=== PATIENT | male | born 1970 | race Two or more races ===

== ENCOUNTER 2019-04-19 11:48 | Emergency (ER) | payer OTHER ==
[~2019-04-19] VITALS: Ht 177.8 cm; Wt 77.1 kg
[2019-04-19] MEDS ORDERED: NIFEDIPINE ER30 MG PO (12:16)
[2019-04-19] MEDS ORDERED: AVAPRO300 MG PO (12:16)
== END 2019-04-19 15:01 | disposition home or self-care (01) ==
LOC: ER 11:48
DX: M79.622 Pain in left upper arm (principal)

== ENCOUNTER 2022-06-13 10:16 | Emergency (ER) | payer OTHER ==
[~2022-06-13] VITALS: Ht 177.8 cm; Wt 78.9 kg
[~2022-06-13 10:16] MED LIST: AVAPRO300 MG PO; NIFEDIPINE ER30 MG PO
[2022-06-13] MEDS ORDERED: CANDESARTAN CIL32 MG PO (11:11)
== END 2022-06-13 16:22 | disposition home or self-care (01) ==
LOC: ER 10:16
DX: M77.30 Calcaneal spur, unspecified foot (principal)